=== PATIENT | female | born 1960 | race Caucasian/White ===

== ENCOUNTER 2016-11-29 12:10 | Day surgery (SDC) | payer OTHER ==
[~2016-11-29] VITALS: Ht 157.5 cm; Wt 114.8 kg
[~2016-11-29 12:10] MED LIST: ADVIL200 MG PO; CELEXA40 MG PO; CYMBALTA60 MG PO; GABAPENTIN300 MG PO; LISINOPRIL-HCT1 EACH PO; MOBIC15 MG PO; TRAMADOL HCL50 MG PO
[2016-11-29] MEDS ORDERED: SENNA-DOCUSATE1 EAC1 PO (12:27)
[2016-11-29] MEDS ORDERED: MULTIVITAMINS1 EAC7 PO (12:27)
--- NOTE | 2016-11-29 14:13 | NUR ---
11/29/16 1413 SandraAbner parra SAT 100% O2 TURNED OFF
--- NOTE | 2016-12-02 11:31 | OR ---
[facility] [address] [place], [place] [address] Signed DATE OF PROCEDURE: 11/29/16 PREOPERATIVE DIAGNOSES Episodic rectal bleeding. Dysphagia. POSTOPERATIVE DIAGNOSES Mild chronic distal esophagitis with Palma's epithelium and mild gastritis. Diverticular changes of sigmoid. Internal and external hemorrhoidal changes. Melanosis coli. PROCEDURES Esophagogastroduodenoscopy with biopsy. Total colonoscopy to cecum with biopsy of cecum. SURGEON: Kemar Dugan MD. ANESTHESIA: Intravenous sedation Fentanyl 150 mcg, Versed 6 mg (total). INDICATION This morbidly obese 56-year-old w gaston woman is a patient of Dr. Loja and has been noted to have heme-positive stools and episodic rectal bleeding. She underwent colonoscopy 10 years ago in [place], [place] by Dr. Epperson and was said to have polyps. She has had no abdominal pain related to the colon. Additionally, she does have dysphagia and reflux type symptoms. She is not taking any anti-reflux medication currently. She is here to undergo upper endoscopy and colonoscopy, understands the risks of bleeding, infection, and perforation findings. On upper endoscopy, she had findings suggestive of Palma's esophagus with islands of mucosa above the Z-line. A poor flap valve was noted as well. Additionally, she had some duodenitis and gastritis. On colonoscopy, the prep was quite good. Complete colonoscopy was undertaken of the cecum. There was melanosis coli and diverticulosis, but no evidence of polyps or cancer. She did have internal hemorrhoids as well as some probable external component to that. PROCEDURE The patient was brought to endoscopy suite and given topical Hurricaine spray, hypopharyngeal anesthesia and placed in lateral decubitus position. She was given intravenous sedation to the point of slurred speech and nystagmus with full cardiopulmonary monitoring. Electronically Signed By: KEMAR DUGAN MD 12/02/16 1131 PATIENT NAME: MERY AVINA OPERATIVE REPORT DATE OF : 56 PHYSICIAN: KEMAR DUGAN MD REPORT #: [id number] REPORT IS CONFIDENTIAL AND NOT TO BE RELEASED WITHOUT AUTHORIZATION [facility] [address] [place], [place] [address] Signed A bite-block was placed and an Olympus video upper endoscope was passed in the hypopharynx. The vocal cords appeared normal. Scope was advanced to the esophagus without problem throughout its length, is normal except in the distal portion where there appeared to be some variation of mucosa suggestive of Palma's epithelium and some islands of what may be Palma's epithelium. Scope was advanced to the stomach which was insufflated with air. Rugal folds were appeared to be normal. Excess gastric juices were suctioned free. The antrum appeared chronically inflamed. The pylorus was normal. Scope was passed into the duodenal. The bulbar portion was a bit inflamed, but no sign of ulceration was seen. Second and third portions were normal. Biopsies were taken of the duodenum and duodenum bulb. The scope was withdrawn and biopsy was then taken of the antrum for both LONA and pathologic testing. Retroflexed view was undertaken showing a rather poor flap valve, but no large hiatal hernia proper. The scope was withdrawn to the distal esophagus and biopsies taken there including narrowband imaging, which guided biopsies of islands of probable Palma's epithelium. The scope was withdrawn and the midesophagus biopsied to assess for eosinophilic esophagitis based on complaints of dysphagia. Scope was removed. Plans were then made for colonoscopy. Additional sedation was given as needed and digital rectal examination performed. An Olympus video colonoscope was passed in the rectum and manipulated throughout the colon ultimately intubating the cecum itself. Melanosis coli was noted. Ileocecal valve and appendiceal orifice was noted. A biopsy was obtained of the cecum to affirm the diagnosis of melanosis. The scope was then withdrawn and careful examination throughout showed no sign of polyps or colitis, but did show diverticular change of the sigmoid. Retroflexed view in the rectum confirmed internal hemorrhoidal changes and there were hemorrhoidal changes in the anal canal as well. The scope was removed and the patient taken to recovery room in good condition. CONCLUDING DIAGNOSES Probable reflux esophagitis with Palma's epithelium. Melanosis coli with diverticulosis and internal hemorrhoids, most likely accounting for bleeding. PLAN Recommend Citrucel 5 one tablespoon p.o. d aily or a high-fiber diet generally. Prilosec 20 mg p.o. daily. She will return to see me in approximately 4-6 weeks and we will review her progress and her pathology report. Electronically Signed By: KEMAR DUGAN MD 12/02/16 1131 PATIENT NAME: MERY AVINA OPERATIVE REPORT DATE OF : 56 PHYSICIAN: KEMAR DUGAN MD REPORT #: [id number] REPORT IS CONFIDENTIAL AND NOT TO BE RELEASED WITHOUT AUTHORIZATION [address] [address] Signed MD MARTIN Rodriguez/Chuck /[id number] cc: Samir Loja Electronically Signed By: KEMAR DUGAN MD 12/02/16 1131 PATIENT NAME: MERY AVINA OPERATIVE REPORT DATE OF : 56 PHYSICIAN: KEMAR DUGAN MD REPORT #: [id number] REPORT IS CONFIDENTIAL AND NOT TO BE RELEASED WITHOUT AUTHORIZATION
== END 2016-11-29 14:58 | disposition home or self-care (01) ==
LOC: DS 12:10 → OPS 12:10 → DS 13:00 → OPS 13:00
PROVIDERS: Surgery
PROC: 0DB28ZX Excision of Middle Esophagus, Via Natural or Artificial Opening Endoscopic, Diagnostic (ICD-10-PCS; 2016-11-29)
PROC: 0DB38ZX Excision of Lower Esophagus, Via Natural or Artificial Opening Endoscopic, Diagnostic (ICD-10-PCS; 2016-11-29)
PROC: 0DBH8ZX Excision of Cecum, Via Natural or Artificial Opening Endoscopic, Diagnostic (ICD-10-PCS; 2016-11-29)
PROC: 0DB98ZX Excision of Duodenum, Via Natural or Artificial Opening Endoscopic, Diagnostic (ICD-10-PCS; principal; 2016-11-29 13:00)
PROC: 0DB68ZX Excision of Stomach, Via Natural or Artificial Opening Endoscopic, Diagnostic (ICD-10-PCS; 2016-11-29 13:00)
DX: K63.89 Other specified diseases of intestine (principal); K64.4 Residual hemorrhoidal skin tags; K64.8 Other hemorrhoids; K57.30 Diverticulosis of large intestine without perforation or abscess without bleeding; K29.50 Unspecified chronic gastritis without bleeding; J45.909 Unspecified asthma, uncomplicated; K21.9 Gastro-esophageal reflux disease without esophagitis; I10 Essential (primary) hypertension; G47.30 Sleep apnea, unspecified; Z88.1 Allergy status to other antibiotic agents; Z90.710 Acquired absence of both cervix and uterus; Z90.49 Acquired absence of other specified parts of digestive tract; Z98.890 Other specified postprocedural states; Z99.81 Dependence on supplemental oxygen; Z79.899 Other long term (current) drug therapy; Z99.89 Dependence on other enabling machines and devices; E66.01 Morbid (severe) obesity due to excess calories; Z68.42 Body mass index [BMI] 45.0-49.9, adult
CPT/HCPCS: 99152; 99153; J2250; J3010; J7120

== ENCOUNTER 2017-11-04 09:16 | Emergency (ER) | payer OTHER ==
[~2017-11-04] VITALS: Ht 157.5 cm; Wt 114.8 kg
[~2017-11-04 09:16] MED LIST changes: +MULTIVITAMINS1 EAC7 PO; +SENNA-DOCUSATE1 EAC1 PO
[2017-11-04] MEDS ORDERED: ALLEGRA ALLERGY60 MG PO (09:33)
[2017-11-04] MEDS ORDERED: MECLIZINE HCL25 MG PO (10:56)
[2017-11-04] MEDS ORDERED: MACRODANTIN100 MG PO (10:56)
--- NOTE | 2017-11-04 20:47 | EKG ---
[facility] [address] [facility] [place], [place] [address] Signed Normal sinus rhythm Prolonged QT Abnormal ECG No previous ECGs available Confirmed by BILL COTTON MD ([id number]) on 11/04/2017 8:47:29 PM Electronically Signed By: BILL COTTON MD 11/04/17 2047 PATIENT NAME: MERY AVINA AMI Electrocardiogram DATE OF : 56 PHYSICIAN: BILL COTTON MD REPORT #: [id number] REPORT IS CONFIDENTIAL AND NOT TO BE RELEASED WITHOUT AUTHORIZATION
== END 2017-11-04 11:15 | disposition home or self-care (01) ==
LOC: ED 09:16
DX: I10 Essential (primary) hypertension (principal); Z88.2 Allergy status to sulfonamides; Z79.899 Other long term (current) drug therapy
CPT/HCPCS: 70450; 80053; 81001; 84484; 85025; 87077; 87088; 87186; 93005; 93010; 96361; 96374; 99284; J2405; J7030

== ENCOUNTER 2018-12-17 06:55 | Day surgery (SDC) | payer OTHER ==
[~2018-12-17] VITALS: Ht 157.5 cm; Wt 108.9 kg
[~2018-12-17 06:55] MED LIST changes: +ALLEGRA ALLERGY60 MG PO; +MACRODANTIN100 MG PO; +MECLIZINE HCL25 MG PO; +OMEPRAZOLE20 MG PO
[2018-12-17] MEDS ORDERED: STOOL SOFTENER240 MG PO (07:26)
[2018-12-17] MEDS ORDERED: ALPHA LIPOIC A200 MG PO (07:27)
--- NOTE | 2018-12-17 11:19 | NUR ---
12/17/18 1119 Jenny Garcia 1054 PT ARRIVED IN PACU SLEEPY WITH NO C/O'S. ICE TO R BREAST. 1115 OXYGEN REMOVED. SATS 93-98% ON RA.
--- NOTE | 2018-12-17 11:47 | NUR ---
PT ARRIVES BACK TO DS ROOM 3 FROM PACU ON ROOM AIR. PT LAYING IN BED WITH EYES CLOSED AND RESPONDS TO QUESTIONS APPROPRIATELY. DENIES PAIN/NAUSEA. ICE WATER PROVIDED. AT BEDSIDE. PT DENIES OTHER NEEDS AT THIS TIME. VSS. CALL LIGHT WITHIN REACH
[2018-12-17] MEDS ORDERED: NORCO 10-325 T1 EACH PO (12:11)
--- NOTE | 2018-12-17 12:59 | NUR ---
HOURLY ASSESSMENT COMPLETE. PT SNORING IN BED AND WAKES TO RN IN ROOM. PT DENIES PAIN/NAUSEA AND TOLERATES PO FLUIDS. LUNCH ORDERED FROM DIETARY. VSS. DRESSING REMAINS C/D/I. CALL LIGHT WITHIN REACH
--- NOTE | 2018-12-17 13:43 | NUR ---
1330- PT CALL LIGHT ALARMING. LUNCH TRAY AT BEDSIDE PT EATS 100%. PT AMBULATES TO BATHROOM TO VOID AND TOLERATES. PT VOIDS 750 ML CONCENTRATED URINE WITHOUT DIFFICULTY. PT BACK TO BED AND MEETS DC CRTIERIA.
--- NOTE | 2018-12-17 14:02 | NUR ---
1350- DC INSTRUCTIONS WITH PRECAUTIONS PROVIDED. PT VERBALIZES UNDERSTANDING AND DENIES FURTHER QUESTIONS. PRESCRIPTION WITH PAIN MEDICATION INSTRUCTIONS GIVEN. DC VSS. IV DC'D WNL. PT DENIES PAIN/NAUSEA. PT TRANSPORTED IN WHEELCHAIR TO VEHICLE DRIVEN BY IN STABLE CONDITION
--- NOTE | 2018-12-17 14:36 | NUR ---
PT TAKEN TO IMAGING. WILL FOLLOW NEEDED
--- NOTE | 2018-12-18 06:16 | OR ---
[facility] [address] [place], [place] [address] Signed DATE OF OPERATION: 12/17/2018 SURGEON: Karen Serra MD PREOPERATIVE DIAGNOSIS: Right breast microcalcifications. POSTOPERATIVE DIAGNOSIS: Right breast microcalcifications. PROCEDURE: Right breast needle-localization excisional biopsy/lumpectomy (right upper inner quadrant). ESTIMATED BLOOD LOSS: None. 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 In September of this year, she had at least 2 areas of microcalcifications in the upper inner quadrant of her right breast roughly at the 3 o'clock to 2 o'clock position. About 3 to 4 cm from her nipple-areolar complex, there was another cluster that seemed to be more linear. She ended up with an MRI and it seemed to roughly correspond to this area of microcalcifications. A radiologist felt that stereotactic biopsy would not be particularly helpful in this regard given the multiplicity of these calcifications in multiple occasions. Consequently, a needle localization excisional biopsy was recommended. I had met with Feli and her in the office. We had gone through her mammograms and MRI line by line. I gave her our [employer] brochure on breast and breast biopsies. We went through it page by page. We discussed all the various options. Feli decided she wanted to undergo the needle localization excisional biopsy/lumpectomy. She understands the expected intraoperative and postop course. We did review the risks including, but not limited to bleeding, infection, scarring, change in contour of the skin, and possible need for additional procedures and/or treatments based on the pathology results. She and her had expressed understanding and wished to proceed. DESCRIPTION OF PROCEDURE: I had met with Feil and her in our preop area. She had already been over to the Radiology Department to have her two wires placed in the upper inner quadrant of her right breast. They were 1.5 cm apart and in a vertical fashion. We all agreed of Electronically Signed By: KAREN SERRA MD 12/18/18 0616 PATIENT NAME: FELI AVINA [facility] OPERATIVE REPORT DATE OF : 56 REPORT #: [id number] PHYSICIAN: KAREN SERRA MD PCP: MIKE BAEZ MD REPORT IS CONFIDENTIAL AND NOT TO BE RELEASED WITHOUT AUTHORIZATION [facility] [address] [place] [id number] Signed course, this was the appropriate area. We marked it appropriately. After this, Feli was taken into our operating room and placed in the supine position under general endotracheal anesthesia. She was given preoperative antibiotics along with subcutaneous heparin. SCDs were utilized. She was then prepped and draped in the usual sterile fashion. utilized a vertical incision. We decided to use a more typical traditional transverse elliptical incision to include both wires such that if she needed additional surgery in the future that incision could be included in her additional surgery. I did review the mammograms directly myself. The calcifications appeared to be near the tips of the wire. The wires do not appear to be particularly deep. After this, we measured out an incision 1.5 cm wide and 6 cm in length in a transverse fashion. We developed that sharply with a #15 blade knife. We used the cautery to go down and around the wires so that the two wires, the skin, and all the tissue came out en bloc. The specimen was then appropriately marked and passed off the field. In the meantime, our radiologist examined the specimen and found that the two areas of microcalcifications are within the specimen. The wound had been infiltrated with local anesthetic. The wound was irrigated and suctioned out until clear. We brought the deeper subcutaneous tissues together with interrupted 3-0 Monocryl sutures. The dermis was also reapproximated with interrupted 3-0 subcuticular Monocryl sutures. The skin was then reapproximated with a running 6-0 fast absorbing plain gut suture. This gave an excellent cosmetic result. Dry gauze and tape were then applied. Feli was awakened from anesthesia, extubated in the OR, and taken to recovery room in stable condition. Karen Serra MD ALB/MODL /[id number] cc: MD Karen Zamora MD Copies: KAREN SERRA MD ~ Electronically Signed By: KAREN SERRA MD 12/18/18 0616 PATIENT NAME: FELI AVINA [facility] OPERATIVE REPORT DATE OF : 56 REPORT #: [id number] PHYSICIAN: KAREN SERRA MD PCP: MIKE BAEZ MD REPORT IS CONFIDENTIAL AND NOT TO BE RELEASED WITHOUT AUTHORIZATION
--- NOTE | 2018-12-26 10:03 | PATH ---
[facility] [address] [place], [place] [address] Signed SPECIMEN(S): A RIGHT UPPER INNER BREAST BIOPSY SPECIMEN SOURCE: A. RIGHT UPPER INNER BREAST BIOPSY CLINICAL HISTORY: Abnormal mammogram right breast. FINAL PATHOLOGIC DIAGNOSIS: Right breast, upper inner quadrant, excision: - Ductal carcinoma in situ, solid and cribriform pattern: - Tumor grade: Intermediate to high-grade with focal comedo necrosis. - Longest confluent tumor focus: 17 millimeters. - Microcalcifications: Present. - Negative for invasive carcinoma. - Margins: - Ductal carcinoma in situ transected on inferior margin. - Background breast: Fibrosis, cyst formation, apocrine metaplasia, typical and atypical ductal hyperplasia. - Estrogen receptor by immunohistochemistry 100 % positive, intensity 4+/4+. - Progesterone receptor by immunohistochemistry 20% positive, intensity 2-3+/4+. COMMENT: As part of [employer] Quality Improvement Program, this case was reviewed by another member of our pathology staff. MARCUS:NRT:cml:C1NR MICROSCOPIC EXAMINATION: Histologic sections of all submitted blocks are examined by light microscopy. These findings, together with the gross examination, support the pathologic diagnosis. Immunostain for smooth muscle myosin heavy chains is obtained along with appropriately positive controls on blocks A1, A5, A14, A15, A20, and A23. Results are consistent with a lack of invasive carcinoma. Estrogen and progesterone receptor by immunohistochemistry performed on material from black A6 with results as reported above. Note that the ductal carcinoma in situ is multifocal, present in almost every block submitted. PATIENT NAME: MERY BURNETT PATHOLOGY DATE OF : 56 REPORT #: [id number] PHYSICIAN: THALIA BISHOP PCP: MIKE BAEZ MD REPORT IS CONFIDENTIAL AND NOT TO BE RELEASED WITHOUT AUTHORIZATION [facility] [address] [place], [place] [address] Signed GROSS DESCRIPTION: The specimen, labeled "CM, right upper inner quadrant breast," is received in formalin and consists of 95 gram oriented portion of yellow-franklin fibroadipose tissue that is 0.7 x 6.5 x 5.2 cm and has two inserted metal localization wires. Also present is a 3.7 x 1.8 cm ellipse of skin. The skin surface is pale pink and wrinkled. A long suture identifies the lateral margin, a short suture identifies the medial margin, and a double suture identifies the deep/posterior margin. The specimen is inked as follows: superior - blue; inferior - green; medial - red; lateral - orange; anterior - yellow; and posterior - black. The skin is present on the anterior surface. The specimen is serially sectioned from medial to lateral into nine slices revealing approximately 90% of the specimen is a yellow-franklin greasy adipose tissue and 10% is a nodular fibrous tissue. No discrete mass lesions are grossly identified. The two localization wires corresponded to the fibrous tissue present in slices 4-6. Linoleum Layer sections are submitted in 29 cassettes. Cassette summary: (A1-A5) Fibroadipose tissue from slice four with closest posterior and inferior soft tissue resection margins, perpendicular (A6-A14) Fibroadipose tissue from slice of five with closest inferior, posterior, and anterior soft tissue resection margins, perpendicular (A15-A19) Fibroadipose tissue from slice six with closest posterior, inferior soft tissue resection margins, perpendicular (A20-A24) Fibroadipose tissue from slice seven with the closest anterior skin, posterior, superior, inferior soft tissue resection margins, perpendicular (A26-A27) Slice one medial soft tissue resection margin, perpendicular (A28-A29) Slice nine, lateral soft tissue resection margin, perpendicular. Cold ischemia time: Insufficient data to calculate. Approximate Formalin time: 12-36 hours. FB (under the direct supervision of a pathologist) The Gross Description was prepared using a voice recognition system. The report was reviewed for accuracy; however, sound-alike word errors, addition and/or deletions may occur. If there is any question about this report, please contact Client Services. PERFORMING LABORATORY: The technical component was performed by [facility], [address] [place] [id number] ([employer] Associate: Evangelina Mcguire MD; CLIA# [id number]). PATIENT NAME: MERY BURNETT PATHOLOGY DATE OF : 56 REPORT #: [id number] PHYSICIAN: THALIA BISHOP PCP: MIKE BAEZ MD REPORT IS CONFIDENTIAL AND NOT TO BE RELEASED WITHOUT AUTHORIZATION [facility] [address] [place], [place] [address] Signed Professional interpretation was performed by [facility], [address] [address] ([employer] Associate: Miquel Paz MD; CLIA# [id number]). Diagnostician: Miquel Paz MD Pathologist Electronically Signed 12/25/2018 Copies: ~ PATIENT NAME: MERY BURNETT PATHOLOGY DATE OF : 56 REPORT #: [id number] PHYSICIAN: THALIA PATHOLOGY PCP: MIKE BAEZ MD REPORT IS CONFIDENTIAL AND NOT TO BE RELEASED WITHOUT AUTHORIZATION
== END 2018-12-17 13:50 | disposition home or self-care (01) ==
LOC: DS 06:55 → OPS 06:55
PROVIDERS: Colon & Rectal Surgery
PROC: 0HBT0ZX Excision of Right Breast, Open Approach, Diagnostic (ICD-10-PCS; principal; 2018-12-17 09:45)
DX: D05.11 Intraductal carcinoma in situ of right breast (principal); I10 Essential (primary) hypertension; E78.00 Pure hypercholesterolemia, unspecified; E66.01 Morbid (severe) obesity due to excess calories; K21.9 Gastro-esophageal reflux disease without esophagitis; G89.29 Other chronic pain; Z68.41 Body mass index [BMI] 40.0-44.9, adult; Z88.2 Allergy status to sulfonamides; Z79.899 Other long term (current) drug therapy
CPT/HCPCS: 00404; 19281; 19282; 76098; J0330; J0690; J1100; J1644; J1885; J2250; J2405; J2704; J2765; J3010; J7120

== ENCOUNTER 2019-01-07 07:33 | Day surgery (SDC) | payer OTHER ==
[~2019-01-07] VITALS: Ht 157.5 cm; Wt 108.9 kg
[~2019-01-07 07:33] MED LIST changes: +ALEVE220 MG PO; +ALPHA LIPOIC A200 MG PO; +NORCO 10-325 T1 EACH PO; +STOOL SOFTENER240 MG PO
--- NOTE | 2019-01-07 10:48 | NUR ---
PT ALERT, ORIENTED AND SEEMED ANXIOUS. HER LEGS TWITCHED AND MOVED MOST OF THE TIME I WAS WITH HER. HER WILL BE HERE SOON. HAD GOOD VISIT WITH PT, SHE REQUESTED PRAYER, WILL FOLLOW NEEDED
--- NOTE | 2019-01-07 11:38 | NUR ---
01/07/19 1138 [place] 1134 PT ARRIVED TO PACU WITH ORAL AIRWAY IN PLACE AND ON 6L VIA MASK. PT NONAROUSBALE TO PAINFUL STINULI. RESP EVEN AND UNLABORED.
--- NOTE | 2019-01-07 12:21 | NUR ---
1210 PT BACK TO ROOM FROM PACU DROWSY BUT RESPONDS TO VERBAL COMMANDS. ON 2L O2 TO KEEP O2 OBOVE 95%. REPORTS SHE HAS MINIMAL PAIN ONLY WHEN SHE MOVES THEN SHE FELL BACK TO SLEEP.
--- NOTE | 2019-01-07 12:48 | NUR ---
1248 PT RESTING COMFORTABLE. SHE AROWSE WHEN I TALK TO HER OTHERWISE SHE JUST WANTS TO SLEEP. O2 TURNED OFF TO SEE IF SHE WILL MAINTAIN SATS ABOVE 95%.
--- NOTE | 2019-01-07 13:37 | NUR ---
1315 PT REPORTS READINESS TO GO HOME. PT AMBULATED TO BATHROOM WITHOUT ASST. SHE WAS ABLE TO VOID 700ML OF CLEAR YELLOW URINE. PT AMBULATED BACK TO BED, AT BEDSIDE. DISCHARGE INSTRUCTION GIVEN TO BOTH PT AND BOTH VOICE UNDERSTANDING.
--- NOTE | 2019-01-08 08:01 | OR ---
[facility] [address] [place], [place] [address] Signed DATE OF OPERATION: 01/07/2019 SURGEON: Karen Serra MD PREOPERATIVE DIAGNOSIS: Right breast ductal carcinoma in situ. POSTOPERATIVE DIAGNOSIS: Right breast ductal carcinoma in situ. PROCEDURE: Reexcision, inferior margin, right breast lumpectomy site. ESTIMATED BLOOD LOSS: None. 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 Two wires were required for the microcalcifications. Her pathology came back with ductal carcinoma in situ with solid and cribriform patterns. There was focal comedonecrosis. She had intermediate to high-grade dysplasia with a 17 mm confluent area of ductal carcinoma in situ. There were microcalcifications present. The specimen was said to have a positive inferior margin. The estrogen receptors are 100% and the progesterone receptors are 20% positive. There is both typical and atypical ductal hyperplasia present. I met with Feli and her in the office. 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 We reviewed ductal carcinoma in situ very carefully and I have posters in the office that we looked at very carefully as well. I explained to her we really need to excise the inferior margin, so that her breast is clear of ductal carcinoma in situ. Even then, she is going to be referred to our medical and radiation oncologist. She understands that if we cannot obtain clear margins, she would need a simple mastectomy. Her skin has to be light in color and there was some erythema to that and so we did give her clindamycin at the time of the office. She has finished that and seems to be doing quite well. Of course, she now has expected induration in that lumpectomy site. There is no drainage. No obvious infection. Just a little erythema along the skin edges from the surgery. I could see whether tape also bothered her skin out more laterally. Feli and her expressed understanding and wished to proceed with a re-excision of the inferior margin. Of course, there is risk including, but not limited to bleeding, infection, scarring, change in contour of the skin, possible need for additional surgery based on our pathology results. Of course, she understand she is going to be seeing the medical and Electronically Signed By: KAREN SERRA MD 01/08/19 0801 PATIENT NAME: FELI BURNETT OPERATIVE REPORT DATE OF : 56 REPORT #: [id number] PHYSICIAN: KAREN SERRA MD PCP: NADINE BAEZ MD REPORT IS CONFIDENTIAL AND NOT TO BE RELEASED WITHOUT AUTHORIZATION [facility] [address] [place], [place] [address] Signed radiation oncologist. DESCRIPTION OF PROCEDURE: I met with Feli in our preop area. Unfortunately, her had to leave prior to that. With our nurse present, we all agreed on the right breast and we marked that appropriately. Again, there was some erythema there but no obvious infection. After this, Feli was taken into our operating room and placed in the supine position under general LMA anesthesia. She was given preoperative antibiotics along with subcutaneous heparin. SCDs were utilized. She was then prepped and draped in the usual sterile fashion. We then used our 15 blade knife to make an elliptical incision around the full length of her previous incision. It started at around the 12 o'clock position on the right nipple areolar complex and traveled up transversely toward the sternum. We then used the cautery to develop our specimen. We took between 12 and 15 mm of tissue on the inferior margin of that lumpectomy cavity site. We also took the posterior margin, which would be closer to the chest wall. It all came out en bloc. The specimen was then appropriately marked and passed off the field. We had reviewed the previous pathology report in detail prior to this to ensure that we were obtaining the correct margin. We then injected local anesthetic in the tissue around the lumpectomy site. The wound was irrigated and suctioned out until clear. We brought the wound together in layers with interrupted 3-0 Monocryl sutures. She is going to have just a little bit of a contour defect along the inframammary crease and a little bit along the anterior wall of her breast on the medial side. Nevertheless, it is not significant given the amount of tissue we did have to remove. The dermis was also reapproximated with interrupted 3-0 subcuticular Monocryl sutures. The skin edges were reapproximated with a running 6-0 fast absorbing plain gut suture. Dry gauze and tape were then applied. Feli was then awakened from anesthesia, extubated in the OR, and taken to recovery in stable condition. Karen Serra MD ALB/MODL /[id number] cc: MD Nadine Lopez MD Electronically Signed By: KAREN SERRA MD 01/08/19 0801 PATIENT NAME: FELI BURNETT [facility] OPERATIVE REPORT DATE OF : 56 REPORT #: [id number] PHYSICIAN: KAREN SERRA MD PCP: NADINE BAEZ MD REPORT IS CONFIDENTIAL AND NOT TO BE RELEASED WITHOUT AUTHORIZATION [address] [place], [place] [address] Signed Copies: KAREN SERRA MD ~ Electronically Signed By: KAREN SERRA MD 01/08/19 0801 PATIENT NAME: FELI BURNETT OPERATIVE REPORT DATE OF : 56 REPORT #: [id number] PHYSICIAN: KAREN SERRA MD PCP: NADINE BAEZ MD REPORT IS CONFIDENTIAL AND NOT TO BE RELEASED WITHOUT AUTHORIZATION
--- NOTE | 2019-01-15 12:57 | PATH ---
[facility] [address] [place], [place] [address] Signed SPECIMEN(S): A RIGHT BREAST SPECIMEN SOURCE: A. 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 Re-excision right breast biopsy site. 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 - Specimen size 8.4 x 6.5 x 3.2 cm - Specimen integrity: Intact. - Greatest tumor dimension: 0.6 cm (measured on slidesee comment). - Histologic type and grade: Cribriform, intermediate grade, with small amount of necrosis. - Margins: Free of neoplasm. Closest margin is 0.7 centimeters from superior margin to DCIS. - Microcalcifications: Not identified. - Additional pathologic findings: - Biopsy cavity wall with fibrosis, fat necrosis, granulation tissue and marked acute and chronic inflammation. - Skin with focal epidermal ulceration and dermal necrosis. - Small amount of uninvolved breast tissue with focal fibrosis and minor cyst formation. COMMENT: The residual DCIS is found in the biopsy cavity wall in 5 blocks. Ancillary studies were performed on a previous biopsy ([id number], received 12/17/18) with results estrogen receptor 100% positive and progesterone receptor 20% positive. Contact pathology if repeat ER and [place] is desired. As part of [facility] Quality Improvement Program, this case was reviewed by another member of our pathology staff. MARCUS:NRT:cml:C2NR MICROSCOPIC EXAMINATION: Histologic sections of all submitted blocks are examined by light microscopy. These findings, together with the gross examination, support the pathologic PATIENT NAME: MERY BURNETT PATHOLOGY DATE OF : 56 REPORT #: [id number] PHYSICIAN: THALIA BISHOP PCP: MIKE BAEZ MD REPORT IS CONFIDENTIAL AND NOT TO BE RELEASED WITHOUT AUTHORIZATION [facility] [address] [place], [place] [address] Signed diagnosis. Immunostains for CK 5/6 and estrogen receptor are obtained along with appropriately positive controls on A29 and support the above diagnoses. GROSS DESCRIPTION: The specimen, labeled "CM, re-excision right breast," is received in formalin and consists of a 46 gram oriented portion of yellow-franklin fibroadipose tissue that is 8.4 x 6.5 x 3.2 cm. The skin is identified as anterior. A long suture identifies the lateral margin, a double suture identifies the deep/chest wall/posterior margin. A short suture identifies the medial margin. The 7.1 x 1.2 cm ellipse of skin is kurtz-white with a healing incision that is 6.1 x 0.6 cm. The superior aspect of the specimen displays a 5.7 x 3.6 cm defect, which opens into the underlying biopsy cavity. A second defect present on the posterior margin, 0.7 cm from the skin is a 1.8 x 1.2 cm defect that communicates with the biopsy cavity. The specimen is inked as follows: superior - blue; inferior - green; medial - red; lateral - orange; anterior - yellow; and posterior - black. The specimen is serially sectioned from medial to lateral into 16 slices, revealing a 5.4 x 4.6 x 2.3 cm biopsy cavity, which communicates with the inferior and superior resection margins. The inner lining of the biopsy cavity is red and finely granular, with areas of yellow-white chalky adipose tissue. The biopsy cavity is 0.8 cm from the anterior skin and soft tissue margin, 1.6 cm from the posterior soft tissue margin, abuts the superior soft tissue margin, abuts the inferior soft tissue margin, 1.4 cm from the medial soft tissue margin, and 0.9 cm from the lateral soft tissue margin. The biopsy cavity wall is rimmed by pink-red rubbery fibrous tissue and areas of yellow-white chalky material. No discrete mass lesion is grossly identified. Approximately 80% of the remaining specimen is a yellow-franklin greasy adipose tissue and 20% is a white-franklin rubbery fibrous tissue. The biopsy cavity wall and entire inferior margin are submitted for histologic examination. Hydrate Thickener Operator sections are submitted in 30 cassettes. Cassette summary: (A1) biopsy cavity to medial soft tissue resection margin, perpendicular (A2-A28) biopsy cavity wall to anterior skin and soft tissue resection margin, posterior, superior, and inferior soft tissue margins, perpendicular (A29-A30) biopsy cavity to lateral soft tissue margin, perpendicular. PATIENT NAME: MERY BURNETT PATHOLOGY DATE OF : 56 REPORT #: [id number] PHYSICIAN: THALIA PATHOLOGY PCP: MIKE BAEZ MD REPORT IS CONFIDENTIAL AND NOT TO BE RELEASED WITHOUT AUTHORIZATION [facility] [address] [facility] [place], [place] [address] Signed Cold ischemia time: Insufficient data to calculate. Approximate Formalin time: 12-36 hours. FB (under the direct supervision of a pathologist) The Gross Description was prepared using a voice recognition system. The report was reviewed for accuracy; however, sound-alike word errors, addition and/or deletions may occur. If there is any question about this report, please contact Client Services. PERFORMING LABORATORY: The technical component was performed by [facility], [address] [place] [address] (Batch Tester: Evangelina Mcguire MD; CLIA# [id number]). [facility], [address] [place] [address] (Batch Tester: Miquel Paz MD; CLIA# [id number]). Diagnostician: Miquel Paz MD Pathologist Electronically Signed 01/15/2019 Copies: ~ PATIENT NAME: MERY BURNETT PATHOLOGY DATE OF : 56 REPORT #: [id number] PHYSICIAN: THALIA PATHOLOGY PCP: MIKE BAEZ MD REPORT IS CONFIDENTIAL AND NOT TO BE RELEASED WITHOUT AUTHORIZATION
== END 2019-01-07 13:30 | disposition home or self-care (01) ==
LOC: DS 07:33
PROVIDERS: Colon & Rectal Surgery
PROC: 0HBT0ZZ Excision of Right Breast, Open Approach (ICD-10-PCS; principal; 2019-01-07 09:30)
DX: D05.91 Unspecified type of carcinoma in situ of right breast (principal); I10 Essential (primary) hypertension; K21.9 Gastro-esophageal reflux disease without esophagitis; E78.00 Pure hypercholesterolemia, unspecified; F41.9 Anxiety disorder, unspecified; J45.909 Unspecified asthma, uncomplicated; G47.30 Sleep apnea, unspecified; E66.01 Morbid (severe) obesity due to excess calories; Z88.2 Allergy status to sulfonamides; Z79.899 Other long term (current) drug therapy; Z79.2 Long term (current) use of antibiotics; Z68.41 Body mass index [BMI] 40.0-44.9, adult
CPT/HCPCS: 00404; J0690; J1100; J1644; J2250; J2405; J2704; J3010; J7120

== ENCOUNTER 2020-11-17 11:12 | Emergency (ER) | payer OTHER ==
[~2020-11-17] VITALS: Ht 157.5 cm; Wt 112.5 kg
[~2020-11-17 11:12] MED LIST changes: +ANASTROZOLE1 MG PO; +BUSPIRONE HCL5 MG PO
--- OUTSIDE RECORDS SUMMARY | 2020-11-17 11:14 | XMS ---
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 Kylie has no Care Guidelines for this patient. [place] VISIT COUNT (12 MO.) 1 JOHN Matt TOTAL 1 NOTE: Visits indicate total known visits. ED/C VISIT TRACKING (12 MO.) 11/17/2020 11:12 [place] TYPE: Emergency COMPLAINT: - WEAKNESS,FLU SYMPTOMS INPATIENT VISIT TRACKING (12 MO.) No inpatient visits to display in this time frame [id number]
[2020-11-17] MEDS ORDERED: AMITRIPTYLINE H25 MG PO (11:20)
--- NOTE | 2020-11-17 21:02 | EKG ---
[facility] [address] [facility] [place], [place] [address] Signed Normal sinus rhythm Nonspecific ST and T wave abnormality Abnormal ECG Confirmed by CHRIS ACOSTA DO ([id number]) on 11/17/2020 9:02:34 PM Electronically Signed By: CHRIS ACOSTA DO 11/17/202101 PATIENT NAME: ROBBY RODRIGUEZMERY MUELLER Electrocardiogram DATE OF : 56 PHYSICIAN: CHRIS ACOSTA DO REPORT #: [id number] REPORT IS CONFIDENTIAL AND NOT TO BE RELEASED WITHOUT AUTHORIZATION
== END 2020-11-17 16:45 | disposition short-term general hospital (02) ==
LOC: ED 11:12 → MS 15:08 → ED 15:08
DX: U07.1 COVID-19 (principal); N39.0 Urinary tract infection, site not specified; R41.82 Altered mental status, unspecified; I10 Essential (primary) hypertension; Z88.2 Allergy status to sulfonamides; Z79.899 Other long term (current) drug therapy
CPT/HCPCS: 36600; 71045; 80053; 81001; 82803; 83605; 84484; 85025; 87040; 87088; 93005; 93010; 94640; 94664; 96365; 99285-25; J0696; J7030

== ENCOUNTER 2023-04-16 08:18 | Day surgery (SDC) | payer OTHER ==
[~2023-04-16] VITALS: Ht 157.5 cm; Wt 112.3 kg
[~2023-04-16 08:18] MED LIST changes: +AMITRIPTYLINE H25 MG PO; +BUSPIRONE HCL15 MG PO; +CETIRIZINE HCL10 MG PO; +CHLORTHALIDONE25 MG PO; +FLONASE ALLERG9.9 ML NAS; +HYDROXYZINE HCL25 MG PO; +K-TAB ER20 MEQ PO; +LYRICA150 MG PO; +METFORMIN HCL500 MG PO; +PRAVASTATIN SOD80 MG PO; +STOOL SOFTENER250 MG PO; +TRULICITY0.75 MG/0. SQ; +TYLENOL325 MG PO; +VENTOLIN HFA18 GM INH
[2023-04-16 08:44] VITALS: BP 157/86
[2023-04-16] MEDS ORDERED: LISINOPRIL20 MG PO (08:58)
[2023-04-16 09:14] LABS: BUN/CREATININE RATIO 16.16 (6.0-28.6); CALCIUM 9.5 mg/dL (8.5-10.1); CREATININE, SERUM 0.99 mg/dL (0.55-1.02)
--- NOTE | 2023-04-16 11:58 | NUR ---
04/16/23 Grace8 Connie Trotter 1140- PT ARRIVES TO PACU, SEMI GAGNON POSITION WITH OPA IN PLACE. PT MAINTAINING OWN AIRWAY WITH JUST OPA, O2 AT 6L PER MASK. LR INFUSING TO LH IV, IV IS POSITIONAL AND HAND REPOSITIONING REQUIRED TO FLOW. COTTON BALL TO R EAR. ALL MONITORS IN PLACE. 1143- PT REACTS TO VERBAL STIMULUS, FOLLOWS COMMANDS TO REMOVE OPA. O2 REMAINS IN PLACE. 1152- PT SATS REMAIN 100% ON 6L PER MASK. MOVED TO ROOM AIR AT THIS TIME. PT WAKES EASILY TO VERBAL STIMULI, REPORTS EAR PAIN IS THERE BUT "NOT ENOUGH TO TALK ABOUT", RATES 2/10. PT LEGS MOVING PERIODICALLY IN A SHAKING PATTERN, PT REPORTS NORMAL FOR HER (RESTLESS LEGS). IV FLUIDS CONTINUE TO INFUSE, WILL CONTINUE TO MONITOR.
--- NOTE | 2023-04-16 12:10 | NUR ---
PT ARRIVES TO UNIT VIA STRETCHER FROM PACU. PT IS A&O X4. PT REPORTS PAIN 1/10 AND TOLERABLE AT THIS TIME. PT REPORTS NO NAUSEA, DIZZINESS, N/T, OR SOB. REPORT RECEIVED FROM GREGORY PARADA, NO FAMILY PRESENT AT BEDSIDE. COTTON BALL IN RT EAR AT THIS TIME, NO VISIBLE DRAINAGE. PT TOLERATING APPLESAUCE, CRACKERS, AND ICE WATER WITHOUT DIFFICULTY. PT REPORTS NO FURTHER NEEDS AT THIS TIME, CALL LIGHT WITHIN REACH.
[2023-04-16 12:12] VITALS: BP 122/67
--- NOTE | 2023-04-16 12:44 | NUR ---
ANSWERED PT CALL LIGHT D/T NEED TO URINE VOID. PT TO BATHROOM VIA 4WW, PT REPORTS NO DIZZINESS OR NAUSEA W/AMBULATION. PT URINE VOIDS 300 ML OF CLEAR/YELLOW URINE. PT GETTING DRESSED AT THIS TIME, CALL LIGHT WITHIN REACH, NO FURTHER NEEDS AT THIS TIME.
--- NOTE | 2023-04-16 13:00 | NUR ---
IN PT ROOM FOR DISCHARGE EDUCATION, PT STATES VERBAL UNDERSTANDING AND NO FURTHER QUESTIONS AT THIS TIME. VS TAKEN. SMALL AMOUNT OF SEROUS DRAINAGE FROM RT EAR ONTO COTTON BALL, COTTON BALL REMAINS IN PLACE. PT REPORTS PAIN MINIMAL AND TOLERABLE AT THIS TIME. PT OFF OF UNIT VIA WC TO PASSENGER SIDE OF 'S VEHICLE, ALL BELONGINGS IN PT POSSESSION. PT REPORTS NO FURTHER NEEDS OR QUESTIONS AT THIS TIME.
[2023-04-16 13:01] VITALS: BP 155/78
--- NOTE | 2023-04-17 06:31 | EKG ---
[facility] [address] [facility] [place] [address] Signed Normal sinus rhythm Nonspecific T wave abnormality Prolonged QT Abnormal ECG When compared with ECG of 28-MAR-2022 15:09, No significant change was found Confirmed by LUCY CANTU MD ([id number]) on 04/17/2023 6:31:49 AM Electronically Signed By: LUCY CANTU 04/17/23 0631 PATIENT NAME: MERY AVINA AMI Electrocardiogram DATE OF : 56 PHYSICIAN: LUCY CANTU REPORT #: [id number] REPORT IS CONFIDENTIAL AND NOT TO BE RELEASED WITHOUT AUTHORIZATION
--- NOTE | 2023-04-23 16:49 | OR ---
[facility] [address] [place], [place] [address] Signed DATE OF OPERATION: 04/16/2023 SURGEON: Kenney Recinos MD PREOPERATIVE DIAGNOSES: Right ear conductive hearing loss, serous otitis media. POSTOPERATIVE DIAGNOSES: Right ear conductive hearing loss, serous otitis media. PROCEDURE: Right myringotomy and ventilation tube insertion with a Narayan tube. ANESTHESIA: General LMA, MAGAZINE DESIGNER, Sharon. PREOPERATIVE HISTORY: Ms. Sanchez is a 62-year-old lady with hearing loss, mainly right-sided. Exam and audiogram and tympanograms have shown fluid in the right ear. This has been unresponsive to appropriate treatments, medications and she is taken to the operating room for the above-mentioned procedures. OPERATIVE PROCEDURE AND FINDINGS: After informed consent, the patient was taken to the operating room, placed in the supine position where general LMA anesthesia was induced. The patient and procedure were verified. Right ear was examined with the operative microscope. The eardrum was dull and retracted. Anterior-inferior radial myringotomy was made. The eardrum was very thickened. Serous middle ear effusion suctioned from the middle ear space. A Narayan tube placed in the myringotomy site. Ofloxacin ophthalmic drops applied to the ear canal, cotton ball to the meatus. The patient tolerated the procedure well, was awakened, extubated, and transported to the recovery room in good condition. No complications. BLOOD LOSS: Minimal. SPECIMEN: No specimen. DRAINS: Electronically Signed By: KENNEY RECINOS MD 04/23/23 1649 PATIENT NAME: MERY SANHCEZ OPERATIVE REPORT DATE OF : 56 REPORT #: [id number] PHYSICIAN: KENNEY RECINOS MD PCP: MIKE BAEZ MD REPORT IS CONFIDENTIAL AND NOT TO BE RELEASED WITHOUT AUTHORIZATION [address] [address] Signed No drains. Kenney Recinos MD /MODL /[id number] Copies: ~ Electronically Signed By: KENNEY RECINOS MD 04/23/23 1649 PATIENT NAME: MERY SANCHEZ OPERATIVE REPORT DATE OF : 56 REPORT #: [id number] PHYSICIAN: KENNEY RECINOS MD PCP: MIKE BAEZ MD REPORT IS CONFIDENTIAL AND NOT TO BE RELEASED WITHOUT AUTHORIZATION
== END 2023-04-16 13:10 | disposition home or self-care (01) ==
LOC: OPS 08:18 → DS 08:29 → OPS 10:15 → DS 10:30 → OPS 10:30
PROVIDERS: Nurse Anesthetist, Certified Registered; ATTEND Otolaryngology
PROC: 099570Z Drainage of Right Middle Ear with Drainage Device, Via Natural or Artificial Opening (ICD-10-PCS; principal; 2023-04-16 11:00)
DX: H90.11 Conductive hearing loss, unilateral, right ear, with unrestricted hearing on the contralateral side (principal); H65.91 Unspecified nonsuppurative otitis media, right ear
CPT/HCPCS: 00126; 36415; 80048; 93005; 93010; J0131; J1100; J2001; J2250; J2405; J2704; J7121

== ENCOUNTER 2023-10-10 05:45 | Day surgery (SDC) | payer MEDICARE, OTHER ==
[2023-10-03 08:31] VITALS: BP 148/92
[~2023-10-10] VITALS: Ht 157.5 cm; Wt 109.7 kg
[~2023-10-10 05:45] MED LIST changes: +DICLOFENAC SODI75 MG PO; +LISINOPRIL20 MG PO; +MIDAZOLAM HCL 5 MG/5 ML VIAL IV PRN; +fentaNYL citrate 100 MCG/2 ML VIAL IV PRN
[2023-10-10 05:53] VITALS: BP 162/81
[2023-10-10] MEDS ORDERED: LIDOCAINE HCL 2% 5 ML SDV ONE (06:59)
[2023-10-10] MEDS ORDERED: LACTATED RINGER'S 1,000 ML IV SCH (07:00)
[2023-10-10] MEDS ORDERED: LIDOCAINE HCL 1% 5 ML SDV INJ ONE (07:00)
[2023-10-10] MEDS ORDERED: IBLOOD GLUCOSE TEST STRIP 1 EA TEST VI PRN (07:00)
[2023-10-10 08:53] VITALS: BP 152/73
--- NOTE | 2023-10-10 17:01 | OR ---
[facility] [address] [place], [place] [address] Signed DATE OF OPERATION: 10/10/2023 SURGEON: Karen Serra MD PREOPERATIVE DIAGNOSES: 1. Possible gastroesophageal reflux disease. 2. Chronic gastritis. 3. Chronic epigastric abdominal pain. 4. Chronic esophageal dysphagia. 5. Chronic constipation. 6. History of melanosis coli. 7. Diverticulosis. 8. Internal and external hemorrhoids. 9. History of rectal bleeding with hemorrhoidectomy around age 29. 10. Paternal uncles x2 with colon cancer sometime after the age of 50. POSTOPERATIVE DIAGNOSES: 1. Retained food in stomach. 2. Minimal to moderate left-sided diverticulosis. 3. Moderate external circumferential hemorrhoids. 4. Minimal to moderate internal hemorrhoids. 5. 5 mm polyp at 90 cm in left colon. PROCEDURES: 1. EGD with CLOtest and biopsies of the antrum, GE junction and midesophagus. 2. Colonoscopy with hot biopsy. ESTIMATED BLOOD LOSS: None. 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 We saw her in 2021, but she was unable to follow through on her scheduling. She talked about seeing Dr. Kaushal Epperson at the age of 29 in about 1989. She was having rectal bleeding associated with hemorrhoids. She had a colonoscopy at that time, but there were no polyps. She did have a hemorrhoidectomy that same year with Dr. Epperson. In 2017, she had guaiac positive stool along with epigastric abdominal pain and esophageal dysphagia. Dr. Porter helped her at that time with both upper and lower endoscopy. She was 56 years of age. The biopsies from the esophagus as well as stomach were unremarkable. Specifically, there was no Palma's Electronically Signed By: KAREN SERRA MD 10/10/23 1702 PATIENT NAME: FELI AVINA OPERATIVE REPORT DATE OF : 56 REPORT #: [id number] PHYSICIAN: KAREN SERRA MD PCP: MIKE BAEZ MD REPORT IS CONFIDENTIAL AND NOT TO BE RELEASED WITHOUT AUTHORIZATION [facility] [address] [place], [place] [address] Signed mucosa. There was no gastritis. Her CLOtest was negative as well. She also describes a long history of chronic constipation. Dr. Porter found mild melanosis coli along with some diverticulosis and internal and external hemorrhoids. We know both her paternal uncles developed colon cancer sometime after the age of 50. She told me she has had three children, all born by . She said her chronic constipation has continued and she was actually happy to take a double bowel prep. This consisted of eight Dulcolax tablets and an entire gallon of polyethylene glycol. Overall, her prep was good but not excellent. She also mentioned her narcolepsy and her severe sleep apnea along with her fibromyalgia and her long COVID disease. Consequently, she is really in need of monitored anesthesia care in conjunction with her very full round face and heavy chest and abdomen. That proved to be a matt decision today. In the office, I had given her a pamphlet on both upper and lower endoscopy. She is familiar with these tests. There is risk including, but not limited to gas bloating, crampy abdominal pain, bleeding, perforation requiring surgery, and missed diagnosis. We also reviewed the written instructions for the bowel prep line by line. She had items to choose with and without sugar. She did a double bowel prep as described above. We also reviewed all her medications including the diabetic medications and I marked that appropriately on our preoperative sheet. She understands that an adult person has to take her home afterwards. She had expressed understanding and wished to proceed. She told me she was up pretty much most of the night going to the bathroom, but she thought she was mostly clear. She had expressed understanding and wished to proceed. DESCRIPTION OF PROCEDURE: Feli was taken into our endoscopy suite and placed in the supine semi-recumbent position. She was given monitored anesthesia care with propofol infusion per our nurse screen stretcher. The posterior oropharynx was anesthetized with lidocaine spray. A bite block was utilized for the case. The adult gastroscope was introduced and passed all the way out into the duodenum under direct visualization without difficulty. The duodenum was unremarkable. She had food in the duodenum and in her stomach. We could not specifically see any inflammatory changes or ulcerations. Upon retroflexion of the scope, I cannot appreciate a hiatal hernia. The scope was withdrawn up through the area of the GE junction, which was compliant without stricture. There were no gastric or esophageal varices. We went ahead and took a biopsy of the antrum for CLOtest as well as pathologic review. The GE junction is unremarkable. There was very little if any disruption to the Z-line. There was no visible evidence of Palma's mucosa. There was no distal esophagitis. We went ahead and took a biopsy on the edge of the Z-line at 35 cm. We took an additional biopsy of the midesophagus because of her long history of dysphagia. The proximal esophagus was unremarkable. The vocal cords and the arytenoids were also unremarkable. After this, the gas was suctioned out and the gastroscope removed. Feli tolerated the procedure quite well. Feli was then rotated into the left lateral decubitus position. She was maintained on Electronically Signed By: KAREN SERRA MD 10/10/23 1706 PATIENT NAME: FELI AVINA OPERATIVE REPORT DATE OF : 56 REPORT #: [id number] PHYSICIAN: KAREN SERRA MD PCP: MIKE BAEZ MD REPORT IS CONFIDENTIAL AND NOT TO BE RELEASED WITHOUT AUTHORIZATION [facility] [address] [place], [place] [address] Signed IV propofol per our nurse screen stretcher. An oral airway had to be placed. A digital rectal exam was performed and she has chronically indurated, moderately large circumferential external hemorrhoids. She has pale skin all around the gluteal area from constant irritation. She would be matt to use Balneol lotion twice a day to protect her skin. She had moderate sphincter tone. There were no masses. The adult colonoscope was introduced and advanced up into the right colon. We had to use some abdominal compression to get into the cecum itself. We suctioned out almost all the liquid particulate stool matter from the cecum. We did not find any obvious pathology in the cecum. The scope was then slowly withdrawn. We took several pictures throughout including the ileocecal valve for photodocumentation. She had one polyp about 5 mm in size back at 90 cm in her proximal left colon. It was easily removed with the hot biopsy forceps. She does have diverticula in the left and sigmoid colon. They were moderate in size, few in number and scattered about. In the rectum, the scope was retroflexion and she does have moderate internal hemorrhoid columns. After this, the gas was suctioned out and the colonoscope removed. Feli tolerated the procedure quite well. RECOMMENDATIONS: I will see Feli back in my office in 7 to 14 days to review her results. She will always need a double bowel prep in the future. She will always be monitored anesthesia care. She will be on the five year plan mainly because of her family history. Karen Serra MD ALB/MODL /[id number] cc: MD Karen Zamora MD Copies: KAREN SERRA MD ~ Electronically Signed By: KAREN SERRA MD 10/10/23 1701 PATIENT NAME: FELI AVINA OPERATIVE REPORT DATE OF : 56 REPORT #: [id number] PHYSICIAN: KAREN SERRA MD PCP: MIKE BAEZ MD REPORT IS CONFIDENTIAL AND NOT TO BE RELEASED WITHOUT AUTHORIZATION
--- NOTE | 2023-10-11 12:03 | PATH ---
[facility] [address] [facility] [place], [place] [address] Signed SPECIMEN(S): A COLON BIOPSY SPECIMEN(S): B GE JUNCTION BIOPSY SPECIMEN(S): C MIDDLE ESOPHAGEAL BIOPSY SPECIMEN(S): D DESCENDIGN POLYP, 90 CM SPECIMEN SOURCE: A. COLON BIOPSY B. GE JUNCTION BIOPSY C. MIDDLE ESOPHAGEAL BIOPSY D. DESCENDIGN POLYP, 90 CM CLINICAL HISTORY: History of chronic constipation, internal/external hemorrhoids, melanosis coli, diverticulosis, family history of colon cancer FINAL PATHOLOGIC DIAGNOSIS: A. Designated "colon biopsy": - Gastric antral mucosa with reactive gastropathy - Negative for Helicobacter pylori with HE stains - See comment B. Gastroesophageal junction, biopsy: - Cardia type glandular mucosa with no significant pathologic changes; negative for intestinal metaplasia C. Esophagus, mid, biopsy: - Esophageal squamous mucosa with no significant pathologic changes D. Colon, descending, polypectomy: - Tubular adenoma COMMENT: For part A, the specimen and requisition are designated "colon biopsy", however the histology is consistent with gastric antral mucosa, as above. Correlation with clinical and endoscopic information is needed to resolve the discrepancy. P MICROSCOPIC EXAMINATION: Histologic sections of all submitted blocks are examined by light microscopy. These findings, together with the gross examination, support the pathologic diagnosis. GROSS DESCRIPTION: PATIENT NAME: MERY AVINA PATHOLOGY DATE OF : 56 REPORT #: [id number] PHYSICIAN: THALIA BISHOP PCP: MIKE BAEZ MD REPORT IS CONFIDENTIAL AND NOT TO BE RELEASED WITHOUT AUTHORIZATION [facility] [address] [place], [place] [address] Signed A. The specimen, labeled and designated "Jesscia, colon biopsy," is received in formalin and consists of one franklin soft tissue fragment, 0.4 cm. Entirely submitted in (A1). B. The specimen, labeled and designated "Jessica, GE junction biopsy," is received in formalin and consists of one franklin soft tissue fragment, 0.4 cm. Entirely submitted in (B1). C. The specimen, labeled and designated "Jessica, middle esophageal biopsy," is received in formalin and consists of one franklin soft tissue fragment, 0.4 cm. Entirely submitted in (C1). D. The specimen, labeled and designated "Jessica, descending polyp, 90 cm," is received in formalin and consists of one franklin soft tissue fragment, 0.2 cm. Entirely submitted in (D1). VB (under the direct supervision of a pathologist) The Gross Description was prepared using a voice recognition system. The report was reviewed for accuracy; however, sound-alike word errors, addition and/or deletions may occur. If there is any question about this report, please contact Client Services. ADDITIONAL NOTES: Immunohistochemical and/or in situ hybridization studies if performed in this case included appropriate positive controls that reacted as expected. This test was developed and its performance characteristics determined by [facility]. It has not been cleared or approved by the U.S. Food and Drug Administration. The FDA has determined that such clearance or approval is not necessary. This test is used for clinical purposes. It should not be regarded as investigational or for research. [facility] is certified under the Clinical Laboratory Improvement Amendments of 1988 (CLIA) as qualified to perform high complexity clinical laboratory testing. PERFORMING LABORATORY: Technical component was performed by [facility], [address] [place] [id number] (CLIA# [id number]). Professional interpretation was performed by [facility], [address] [address], [place] [address] (CLIA# [id number]). Diagnostician: Edgar Alford MD Pathologist Electronically Signed 10/11/2023 PATIENT NAME: MERY AVINA AMI PATHOLOGY DATE OF : 56 REPORT #: [id number] PHYSICIAN: THALIA PATHOLOGY PCP: MIKE BAEZ MD REPORT IS CONFIDENTIAL AND NOT TO BE RELEASED WITHOUT AUTHORIZATION [facility] [address] [place], [place] [address] Signed Copies: ~ PATIENT NAME: MERY AVINA AMI PATHOLOGY DATE OF : 56 REPORT #: [id number] PHYSICIAN: [facility] PCP: MIKE BAEZ MD REPORT IS CONFIDENTIAL AND NOT TO BE RELEASED WITHOUT AUTHORIZATION
== END 2023-10-10 08:55 | disposition home or self-care (01) ==
LOC: DS 05:45
PROVIDERS: ATTEND Colon & Rectal Surgery
PROC: 0DB68ZX Excision of Stomach, Via Natural or Artificial Opening Endoscopic, Diagnostic (ICD-10-PCS; principal; 2023-10-10 07:30)
PROC: 0DBE8ZX Excision of Large Intestine, Via Natural or Artificial Opening Endoscopic, Diagnostic (ICD-10-PCS; 2023-10-10 07:30)
DX: Z12.11 Encounter for screening for malignant neoplasm of colon (principal); D12.4 Benign neoplasm of descending colon; K57.30 Diverticulosis of large intestine without perforation or abscess without bleeding; K64.4 Residual hemorrhoidal skin tags; K64.8 Other hemorrhoids; K31.9 Disease of stomach and duodenum, unspecified; K29.50 Unspecified chronic gastritis without bleeding; R13.10 Dysphagia, unspecified; K59.09 Other constipation; G47.33 Obstructive sleep apnea (adult) (pediatric); I10 Essential (primary) hypertension; E11.42 Type 2 diabetes mellitus with diabetic polyneuropathy; K21.9 Gastro-esophageal reflux disease without esophagitis; Z86.16 Personal history of COVID-19; Z88.2 Allergy status to sulfonamides; Z79.84 Long term (current) use of oral hypoglycemic drugs; Z79.899 Other long term (current) drug therapy
CPT/HCPCS: 36415; 87077; J2001; J7121